=== PATIENT | male | born 1970 | race Two or more races ===

== ENCOUNTER 2017-07-13 22:24 | Emergency (ER) | payer SELFPAY ==
[~2017-07-13] VITALS: Ht 170.2 cm; Wt 82.0 kg
[2017-07-14 01:16] LABS: CHLORIDE 104 mEq/L (98-107)
[2017-07-14 01:19] LABS: ETHANOL BLOOD 274 mg/dL
[2017-07-14 02:11] VITALS: BP 124/70
== END 2017-07-14 02:11 | disposition home or self-care (01) ==
LOC: ER 22:24
DX: F10.229 Alcohol dependence with intoxication, unspecified (principal); R25.2 Cramp and spasm; F17.200 Nicotine dependence, unspecified, uncomplicated; Y90.8 Blood alcohol level of 240 mg/100 ml or more; V43.52XA Car driver injured in collision with other type car in traffic accident, initial encounter; Y93.89 Activity, other specified; Y92.488 Other paved roadways as the place of occurrence of the external cause
CPT/HCPCS: 36415; 70450; 80048; 99285; G0482